=== PATIENT | male | born 1965 | race Caucasian/White ===

== ENCOUNTER 2019-05-08 10:45 | Emergency (ER) | payer OTHER ==
[~2019-05-08] VITALS: Ht 193 cm; Wt 78.5 kg
--- NOTE | 2019-05-08 10:49 | NUR ---
PT [id number], in custody, c/o mild sob. here for medical clearance. pt is aaox4, not in respiratory distress, hooked to monitor, kept rested and comfortable, will continue to monitor.
--- NOTE | 2019-05-08 10:53 | NUR ---
SEEN AND EXAMINED BY .
--- NOTE | 2019-05-08 11:00 | NUR ---
ER PHLEB AT BEDSIDE FOR BLOOD DRAW.
[2019-05-08 11:12] LABS: BASOPHILS # (AUTO) 0.3 /CMM (0.0-0.2); BASOPHILS % (AUTO) 3.7 % (0.0-2.0); EOSINOPHILS % (AUTO) 1.9 % (0.0-6.0); HEMATOCRIT 45 % (39-51); HEMOGLOBIN 14.6 g/dL (13.5-17.5); LYMPHOCYTES # (AUTO) 0.8 /CMM (0.8-4.8); LYMPHOCYTES % (AUTO) 11.1 % (20.0-44.0); MEAN CORPUSCULAR HGB CONC 33 g/dl (31.0-36.0); MEAN CORPUSCULAR VOLUME 91 fL (80-96); MONOCYTES # (AUTO) 0.3 /CMM (0.1-1.30); MONOCYTES % (AUTO) 4.1 % (2.0-12.0); NEUTROPHILS # (AUTO) 5.8 /CMM (1.8-8.9); NEUTROPHILS % (AUTO) 79.2 % (43.0-81.0); PLATELET COUNT (AUTO) 244 /CMM (150-450); RED BLOOD CELL COUNT(AUTO) 4.98 MIL/uL (4.5-6.0); WHITE BLOOD COUNT (AUTO) 7.3 K/uL (4.3-11.0)
[2019-05-08 11:16] LABS: CALCIUM, SERUM 9.1 mg/dL (8.5-10.1); POTASSIUM 4.7 mmol/L (3.5-5.1)
--- NOTE | 2019-05-08 11:18 | NUR ---
SLITTER SCORER AT BEDSIDE FOR XRAY.
[2019-05-08 11:21] LABS: ALBUMIN 3.7 g/dL (3.4-5.0); BILIRUBIN,DIRECT 0.3 mg/dL (0.0-0.2); BILIRUBIN,TOTAL 2.1 mg/dL (0.2-1.0); TOTAL PROTEIN, SERUM 6.8 g/dL (6.4-8.2)
[2019-05-08 11:34] VITALS: BP 118/83
--- NOTE | 2019-05-08 11:54 | NUR ---
Patient discharged in custody in stable condition. Written and verbal after care instructions given. Patient verbalizes understanding of instruction.
== END 2019-05-08 11:55 ==
LOC: ER 10:50
DX: R07.89 Other chest pain (principal); R06.02 Shortness of breath
CPT/HCPCS: 36415; 71045-TC; 80048-TC; 80076-TC; 84484-TC; 85025-TC

== ENCOUNTER 2023-10-24 11:27 | Inpatient (IN) | payer OTHER ==
[~2023-10-24] VITALS: Ht 193 cm; Wt 62.1 kg
[2023-10-24 11:55] LABS: BASOPHILS # (AUTO) 0.2 K/uL (0.0-0.2); BASOPHILS % (AUTO) 3.9 % (0.0-2.0); EOSINOPHILS # (AUTO) 0.1 K/uL (0.0-0.7); EOSINOPHILS % (AUTO) 1.6 % (0.0-6.0); HEMATOCRIT 41 % (39-51); HEMOGLOBIN 13.4 g/dL (13.5-17.5); LYMPHOCYTES # (AUTO) 0.8 K/uL (0.8-4.8); LYMPHOCYTES % (AUTO) 14.4 % (20.0-44.0); MEAN CORPUSCULAR HEMOGLOBIN 29 PG (26.0-33.0); MEAN CORPUSCULAR HGB CONC 33 g/dl (31.0-36.0); MEAN CORPUSCULAR VOLUME 89 fL (80-96); MONOCYTES # (AUTO) 0.3 K/uL (0.1-1.30); NEUTROPHILS # (AUTO) 3.9 K/uL (1.8-8.9); NEUTROPHILS % (AUTO) 74.1 % (43.0-81.0); PLATELET COUNT (AUTO) 193 K/uL (150-450); RED BLOOD CELL COUNT(AUTO) 4.56 MIL/uL (4.5-6.0); RED CELL DISTRIBUTION WIDTH 14.6 % (11.5-15.0); WHITE BLOOD COUNT (AUTO) 5.2 K/uL (4.3-11.0)
[2023-10-24 12:04] LABS: CALCIUM, SERUM 8.3 mg/dL (8.5-10.1); CARBON DIOXIDE 28 mmol/L (21-32); CHLORIDE 103 mmol/L (98-107); CREATININE 1.4 mg/dL (0.6-1.3); GLUCOSE 170 mg/dL (74-106); POTASSIUM 4.2 mmol/L (3.5-5.1); SODIUM SERUM 138 mmol/L (136-145); UREA NITROGEN, BLOOD 27 mg/dL (7-18)
[2023-10-24 12:16] LABS: NT-PRO BNP 5337 pg/mL (0-125)
[2023-10-24] MEDS ORDERED: FURO-145 PO (13:06)
[2023-10-24] MEDS ORDERED: SACU1TAB PO (13:06)
[2023-10-24] MEDS ORDERED: CARV3.12 PO (13:06)
[2023-10-24 17:00] VITALS: BP 93/74; TEMP 98.3
[2023-10-24 20:00] VITALS: BP 104/84; TEMP 97.3; O2SAT 97
[2023-10-24] MEDS ORDERED: MISCELLANEOUS MED 1 EA EA XX ONE ×2 (20:30→21:00)
[2023-10-24] MEDS: FUROSEMIDE 20 MG TABLET PO SCH (21:01)
[2023-10-24] MEDS: CARVEDILOL 3.125 MG TABLET PO SCH ×2 (21:01→22:30)
[2023-10-24] MEDS: SACUBITRIL/VALSARTAN 1 EACH TABLET PO SCH (21:02)
[2023-10-24] MEDS ORDERED: MAGNESIUM HYDROXIDE 30 ML UDC PO PRN (22:30)
[2023-10-24] MEDS ORDERED: MAG HYDROX/AL HYDROX/SIMETH 30 ML UDC PO PRN (22:30)
[2023-10-24] MEDS ORDERED: ONDANSETRON HCL/PF 4 MG/2 ML VIAL IVP PRN (22:30)
[2023-10-24] MEDS ORDERED: Z GUARD REMEDY 4 OZ OINT TP PRN (22:30)
[2023-10-24] MEDS ORDERED: ACETAMINOPHEN 325 MG TABLET PO PRN (22:30)
[2023-10-24] MEDS ORDERED: ZOLPIDEM TARTRATE 5 MG TABLET PO PRN (22:30)
[2023-10-25] VITALS: BP 104/83; TEMP 97.5; O2SAT 97
[2023-10-25] MEDS: LORAZEPAM 0.5 MG TABLET PO PRN (01:33)
[2023-10-25 04:00] VITALS: BP 100/73; TEMP 97.7; O2SAT 95
[2023-10-25 07:00] VITALS: BP 103/88; TEMP 98.2; O2SAT 100
[2023-10-25] MEDS: PANTOPRAZOLE 40 MG TABLET.DR PO SCH (08:02)
[2023-10-25] MEDS: FUROSEMIDE 20 MG TABLET PO SCH (08:04)
[2023-10-25 08:07] VITALS: BP 108/86
[2023-10-25 08:47] LABS: CALCIUM, SERUM 8.2 mg/dL (8.5-10.1)
[2023-10-25 10:20] LABS: BASOPHILS % (AUTO) 0.7 % (0.0-2.0); EOSINOPHILS # (AUTO) 0.2 K/uL (0.0-0.7); EOSINOPHILS % (AUTO) 2.2 % (0.0-6.0); HEMATOCRIT 39 % (39-51); LYMPHOCYTES # (AUTO) 1.3 K/uL (0.8-4.8); LYMPHOCYTES % (AUTO) 18.6 % (20.0-44.0); MEAN CORPUSCULAR HEMOGLOBIN 30 PG (26.0-33.0); MEAN CORPUSCULAR HGB CONC 34 g/dl (31.0-36.0); MEAN CORPUSCULAR VOLUME 89 fL (80-96); MONOCYTES # (AUTO) 0.5 K/uL (0.1-1.30); MONOCYTES % (AUTO) 6.7 % (2.0-12.0); NEUTROPHILS # (AUTO) 4.9 K/uL (1.8-8.9); NEUTROPHILS % (AUTO) 71.8 % (43.0-81.0); PLATELET COUNT (AUTO) 192 K/uL (150-450); RED BLOOD CELL COUNT(AUTO) 4.33 MIL/uL (4.5-6.0); RED CELL DISTRIBUTION WIDTH 14.6 % (11.5-15.0); WHITE BLOOD COUNT (AUTO) 6.8 K/uL (4.3-11.0)
[2023-10-25 10:41] LABS: PHOSPHORUS 3.6 mg/dL (2.5-4.9)
[2023-10-25 10:59] LABS: MAGNESIUM 2.3 mg/dL (1.8-2.4)
[2023-10-25] MEDS ORDERED: FURO-145 PO (11:07)
[2023-10-25] MEDS ORDERED: SPIR25TA6 PO (11:07)
== END 2023-10-25 13:45 | disposition home or self-care (01) | DRG 198 ==
LOC: ER 11:30 → TELE 16:34
PROVIDERS: ADMIT Nurse Practitioner Family; ATTEND Student in an Organized Health Care Education/Training Program
DX: I25.10 Atherosclerotic heart disease of native coronary artery without angina pectoris (principal); N17.0 Acute kidney failure with tubular necrosis; I50.9 Heart failure, unspecified; I11.0 Hypertensive heart disease with heart failure; D64.9 Anemia, unspecified; R79.89 Other specified abnormal findings of blood chemistry; E88.9 Metabolic disorder, unspecified; Z95.810 Presence of automatic (implantable) cardiac defibrillator
CPT/HCPCS: 36415; 71045-TC; 80048-TC; 80061-TC; 83735-TC; 83880; 84100-TC; 84484-TC; 85025-TC; 97110-TC; 97116-TC; 97530-TC; G0378

== ENCOUNTER 2023-11-12 04:14 | Inpatient (IN) | payer OTHER ==
[2023-11-12] VITALS (7 sets, daily range): BP systolic 94–110; BP diastolic 78–81; TEMP 97.5–97.7; O2SAT 97–100
[~2023-11-12] VITALS: Ht 182.9 cm; Wt 78.0 kg
[~2023-11-12 04:14] MED LIST: CARV3.12 PO; FURO-145 PO; SACU1TAB PO; SPIR25TA6 PO
[2023-11-12] MEDS ORDERED: ASPIRIN 81 MG TAB.CHEW ONE (04:50)
[2023-11-12] MEDS ORDERED: NITROGLYCERIN PACKET 1 GM PACKET ONE (04:50)
[2023-11-12 04:56] LABS: BASOPHILS % (AUTO) 0.1 % (0.0-2.0); EOSINOPHILS % (AUTO) 0.1 % (0.0-6.0); HEMATOCRIT 35 % (39-51); HEMOGLOBIN 11.4 g/dL (13.5-17.5); LYMPHOCYTES # (AUTO) 1.2 K/uL (0.8-4.8); MEAN CORPUSCULAR HEMOGLOBIN 30 PG (26.0-33.0); MEAN CORPUSCULAR HGB CONC 33 g/dl (31.0-36.0); MEAN CORPUSCULAR VOLUME 91 fL (80-96); MONOCYTES # (AUTO) 1.3 K/uL (0.1-1.30); MONOCYTES % (AUTO) 12.2 % (2.0-12.0); NEUTROPHILS # (AUTO) 8.2 K/uL (1.8-8.9); NEUTROPHILS % (AUTO) 76.6 % (43.0-81.0); PLATELET COUNT (AUTO) 155 K/uL (150-450); RED BLOOD CELL COUNT(AUTO) 3.84 MIL/uL (4.5-6.0); RED CELL DISTRIBUTION WIDTH 15.3 % (11.5-15.0); WHITE BLOOD COUNT (AUTO) 10.7 K/uL (4.3-11.0)
[2023-11-12] MEDS: ASPIRIN 81 MG TAB.CHEW PO ONE (04:57)
[2023-11-12] MEDS: NITROGLYCERIN PACKET 1 GM PACKET TD ONE (04:58)
[2023-11-12 05:09] LABS: ALANINE AMINOTRANSFERASE 884 U/L (12-78); ALBUMIN 3.6 g/dL (3.4-5.0); ALKALINE PHOSPHATASE 104 U/L (46-116); ASPARTATE AMINOTRANSFERASE 190 U/L (15-37); BILIRUBIN,DIRECT 1.4 mg/dL (0.0-0.2); BILIRUBIN,TOTAL 4.6 mg/dL (0.2-1.0); CALCIUM, SERUM 8.9 mg/dL (8.5-10.1); CARBON DIOXIDE 25 mmol/L (21-32); CHLORIDE 87 mmol/L (98-107); CREATININE 1.5 mg/dL (0.6-1.3); GLUCOSE 117 mg/dL (74-106); POTASSIUM 4.5 mmol/L (3.5-5.1); SODIUM SERUM 122 mmol/L (136-145); TOTAL PROTEIN, SERUM 7.1 g/dL (6.4-8.2); UREA NITROGEN, BLOOD 74 mg/dL (7-18)
[2023-11-12] MEDS: IV NS 0.9% 500 ML BAG IV ONE (05:37)
[2023-11-12 06:10] LABS: APPEARANCE,URINE SLIGHTLY CLOUDY (CLEAR); BILIRUBIN,URINE NEGATIVE (NEGATIVE); BLOOD, URINE 1+ Ery/uL (NEGATIVE); COLOR,URINE YELLOW (YELLOW); KETONES,URINE NEGATIVE (NEGATIVE); LEUKOCYTE ESTERASE ,URINE NEGATIVE (NEGATIVE); NITRITE, URINE NEGATIVE (NEGATIVE); PROTEIN,URINE 2+ mg/dl (NEGATIVE); UGLUCOSE NEGATIVE (NEGATIVE)
[2023-11-12 06:15] LABS: ABG BASE EXCESS -0.6 mmol/L; ABG OXYGEN SATURATION 98.8 % (92.0-98.5); ABG PCO2 22.2 mmHg (35.0-45.0); ABG PH 7.567 (7.350-7.450); ABG PO2 132.7 mmHg (75.0-100.0); ABG TOTAL HEMOGLOBIN 12.6 G/dL (13.5-18.0); COHb 0.5 % (0.5-1.5); MetHb 0.2 % (0.0-1.5); O2Hb 98.1 % (94.0-97.0); SITE, ABG Right Radial
[2023-11-12 06:15] LABS: URINE SODIUM, RANDOM < 5 mmol/l (40-220)
[2023-11-12 06:17] LABS: ADD URINE CULTURE NO; BACTERIA,URINE Rare /HPF (None Seen); SQUAMOUS EPITHELIAL CELL,UR Rare /HPF (None Seen); WBC,URINE 0-2 /HPF (0-3)
[2023-11-12] MEDS ORDERED: IOHEXOL-350 100 ML VIAL IV ONE (07:38)
[2023-11-12] MEDS ORDERED: IV NS 0.9% 250 ML IV ONE (07:39)
[2023-11-12] MEDS ORDERED: CT SWABBABLE VALVE TRANS SET 1 EA INFUS.SET MC ONE (07:39)
[2023-11-12] MEDS ORDERED: ALBUTEROL FS 2.5 MG/0.5 ML VIAL.NEB NEB PRN (08:00)
[2023-11-12] MEDS ORDERED: hydrALAZINE HCL IV 20 MG VIAL IV PRN (08:00)
[2023-11-12] MEDS ORDERED: FUROSEMIDE 20 MG TABLET PO PRN (08:00)
[2023-11-12] MEDS ORDERED: METO25TA4 PO (08:05)
[2023-11-12] MEDS ORDERED: ASPI-1169 PO (08:05)
[2023-11-12] MEDS ORDERED: GABA-532 PO (08:05)
[2023-11-12] MEDS ORDERED: AMIO200T5 PO (08:05)
[2023-11-12] MEDS ORDERED: CARVEDILOL 3.125 MG TABLET PO SCH (09:00)
[2023-11-12] MEDS ORDERED: SPIRONOLACTONE 25 MG TABLET PO SCH (09:00)
[2023-11-12 10:31] LABS: AMPHETAMINE, URINE NEGATIVE (NEGATIVE); BARBITURATE, URINE NEGATIVE (NEGATIVE); BENZODIAZEPINE, URINE NEGATIVE (NEGATIVE); CANNABINOID, URINE NEGATIVE (NEGATIVE); COCCAINE, URINE NEGATIVE (NEGATIVE); PHENCYCLIDINE SCREEN,URINE NEGATIVE (NEGATIVE)
[2023-11-12 10:36] LABS: OPIATE, URINE POSITIVE (NEGATIVE)
[2023-11-12] MEDS: HEPARIN SODIUM, PORCINE 5000 UNITS/1 ML VIAL SQ SCH (10:44)
[2023-11-12] MEDS ORDERED: IPRATROPIUM/ALBUTEROL INHALER IH SCH (12:00)
[2023-11-12] MEDS: ALBUTEROL FS 2.5 MG/3 ML VIAL.NEB NEB SCH (13:18)
[2023-11-12] MEDS: IPRATROPIUM NEB FS 0.5 MG/2.5 ML AMPUL.NEB NEB SCH (13:19)
[2023-11-12] MEDS: CEFEPIME 1 GM in IV D5W 50 ML IV SCH (13:24)
[2023-11-12] MEDS: VANCOMYCIN HCL 1.25 GM in IV D5W 250 ML IV ONE (13:58)
[2023-11-12] MEDS: LORAZEPAM 1 MG TABLET PO PRN (17:55)
[2023-11-13] VITALS (27 sets, daily range): BP systolic 91–119; BP diastolic 71–100; TEMP 96.5–97.8; O2SAT 83–100
[2023-11-13] MEDS: VANCOMYCIN 750 MG in IV D5W 250 ML IV SCH (00:01)
[2023-11-13 05:27] LABS: ABG BASE EXCESS -2.7 mmol/L; ABG OXYGEN SATURATION 98.7 % (92.0-98.5); ABG PCO2 13.9 mmHg (35.0-45.0); ABG PH 7.653 (7.350-7.450); ABG PO2 114.7 mmHg (75.0-100.0); ABG TOTAL HEMOGLOBIN 12.4 G/dL (13.5-18.0); AaDO2 68.5 mmHg; COHb 0.7 % (0.5-1.5); MetHb 0.1 % (0.0-1.5); O2Hb 97.9 % (94.0-97.0); SITE, ABG Right Radial; VENT MODE, BG 2LPM NC
[2023-11-13 06:51] LABS: BASOPHILS % (AUTO) 0.1 % (0.0-2.0); EOSINOPHILS % (AUTO) 0.4 % (0.0-6.0); HEMATOCRIT 36 % (39-51); HEMOGLOBIN 11.6 g/dL (13.5-17.5); LYMPHOCYTES # (AUTO) 1.4 K/uL (0.8-4.8); LYMPHOCYTES % (AUTO) 12.9 % (20.0-44.0); MEAN CORPUSCULAR HEMOGLOBIN 30 PG (26.0-33.0); MEAN CORPUSCULAR HGB CONC 33 g/dl (31.0-36.0); MEAN CORPUSCULAR VOLUME 90 fL (80-96); MONOCYTES # (AUTO) 1.1 K/uL (0.1-1.30); MONOCYTES % (AUTO) 10.5 % (2.0-12.0); NEUTROPHILS # (AUTO) 8.1 K/uL (1.8-8.9); NEUTROPHILS % (AUTO) 76.1 % (43.0-81.0); PLATELET COUNT (AUTO) 159 K/uL (150-450); RED BLOOD CELL COUNT(AUTO) 3.94 MIL/uL (4.5-6.0); RED CELL DISTRIBUTION WIDTH 15.1 % (11.5-15.0); WHITE BLOOD COUNT (AUTO) 10.7 K/uL (4.3-11.0)
[2023-11-13 07:09] LABS: ALBUMIN 3.5 g/dL (3.4-5.0); BILIRUBIN,TOTAL 4.1 mg/dL (0.2-1.0); CALCIUM, SERUM 8.8 mg/dL (8.5-10.1); CREATININE 1.5 mg/dL (0.6-1.3); MAGNESIUM 3.2 mg/dL (1.8-2.4); PHOSPHORUS 3.7 mg/dL (2.5-4.9); POTASSIUM 4.6 mmol/L (3.5-5.1); TOTAL PROTEIN, SERUM 7.1 g/dL (6.4-8.2)
[2023-11-13] MEDS: GABAPENTIN 100 MG CAPSULE PO SCH (09:02)
[2023-11-13] MEDS: METOPROLOL SUCCINATE 25 MG TAB.SR.24H PO SCH (09:02)
[2023-11-13] MEDS: ASPIRIN 81 MG TAB.CHEW PO SCH (09:02)
[2023-11-13] MEDS: AMIODARONE HCL 200 MG TABLET PO SCH (09:03)
[2023-11-13] MEDS: ALBUTEROL HALF STRENGTH 1.25 MG/3 ML VIAL.NEB NEB SCH (14:29)
[2023-11-13] MEDS ORDERED: DoBUTamine 500 MG/250 ML PIGGYBACK IV ONE (20:00)
[2023-11-13] MEDS ORDERED: DOBUTamine 500 MG in IV D5W 210 ML IV PRN (20:30)
[2023-11-13] MEDS: DOBUTamine 500 MG in IV D5W 210 ML IV PRN (20:54)
[2023-11-13] MEDS: DoBUTamine 500 MG/250 ML PIGGYBACK IV ONE (20:56)
[2023-11-13 22:00] LABS: ABG OXYGEN SATURATION 98.6 % (92.0-98.5); ABG PH 7.483 (7.350-7.450); ABG PO2 125.2 mmHg (75.0-100.0); ABG TOTAL HEMOGLOBIN 12.4 G/dL (13.5-18.0); AaDO2 78.4 mmHg; COHb 0.6 % (0.5-1.5); SITE, ABG Right Radial
[2023-11-13 22:45] LABS: OSMOLALITY,URINE 409 mOS/kg (340-1090)
[2023-11-14] VITALS (100 sets, daily range): BP systolic 84–125; BP diastolic 55–99; TEMP 96.7–97.8; O2SAT 79–100
[2023-11-14] MEDS: ACETAMINOPHEN 325 MG TABLET PO PRN (04:21)
[2023-11-14] MEDS: NOREPINEPHRINE 4 MG/4 ML AMPUL IV ONE (05:07)
[2023-11-14 05:10] LABS: HEMATOCRIT 31 % (39-51); HEMOGLOBIN 10.3 g/dL (13.5-17.5); LYMPHOCYTES # (AUTO) 0.8 K/uL (0.8-4.8); LYMPHOCYTES % (AUTO) 10.6 % (20.0-44.0); MEAN CORPUSCULAR HEMOGLOBIN 30 PG (26.0-33.0); MEAN CORPUSCULAR HGB CONC 33 g/dl (31.0-36.0); MEAN CORPUSCULAR VOLUME 89 fL (80-96); MONOCYTES # (AUTO) 0.6 K/uL (0.1-1.30); MONOCYTES % (AUTO) 8.8 % (2.0-12.0); NEUTROPHILS # (AUTO) 5.8 K/uL (1.8-8.9); NEUTROPHILS % (AUTO) 80.6 % (43.0-81.0); PLATELET COUNT (AUTO) 124 K/uL (150-450); RED BLOOD CELL COUNT(AUTO) 3.46 MIL/uL (4.5-6.0); RED CELL DISTRIBUTION WIDTH 14.7 % (11.5-15.0); WHITE BLOOD COUNT (AUTO) 7.2 K/uL (4.3-11.0)
[2023-11-14] MEDS: NOREPINEPHRINE 32 MG in IV NS 0.9% 218 ML IV PRN (05:19)
[2023-11-14 06:45] LABS: ALBUMIN 3.1 g/dL (3.4-5.0); BILIRUBIN,TOTAL 4.2 mg/dL (0.2-1.0); CALCIUM, SERUM 8.6 mg/dL (8.5-10.1); CREATININE 1.8 mg/dL (0.6-1.3); MAGNESIUM 2.8 mg/dL (1.8-2.4); PHOSPHORUS 4.7 mg/dL (2.5-4.9)
[2023-11-14 06:52] LABS: POTASSIUM 4.8 mmol/L (3.5-5.1)
[2023-11-14 07:02] LABS: APPEARANCE,URINE CLEAR (CLEAR); BILIRUBIN,URINE NEGATIVE (NEGATIVE); BLOOD, URINE TRACE-INTA Ery/uL (NEGATIVE); COLOR,URINE YELLOW (YELLOW); KETONES,URINE NEGATIVE (NEGATIVE); LEUKOCYTE ESTERASE ,URINE NEGATIVE (NEGATIVE); NITRITE, URINE NEGATIVE (NEGATIVE); PROTEIN,URINE 1+ mg/dl (NEGATIVE); UGLUCOSE NEGATIVE (NEGATIVE); UROBILINOGEN,URINE 0.2 EU/dL (0.2)
[2023-11-14 07:18] LABS: ADD URINE CULTURE NO; BACTERIA,URINE Rare /HPF (None Seen); SQUAMOUS EPITHELIAL CELL,UR Rare /HPF (None Seen)
[2023-11-14 07:25] LABS: CREATININE, URINE 78.7 MG/DL (30.0-125.0); URINE TOTAL PROTEIN 86.7 mg/dL (0-11.9)
[2023-11-14 07:32] LABS: URINE SODIUM, RANDOM < 5 mmol/l (40-220)
[2023-11-14 07:33] LABS: EOSINOPHIL,URINE None Seen
[2023-11-14] MEDS: SERTRALINE HCL 25 MG TABLET PO SCH (19:13)
[2023-11-14] MEDS: ONDANSETRON HCL/PF 4 MG/2 ML VIAL IVP PRN (23:33)
[2023-11-15] VITALS (74 sets, daily range): BP systolic 92–114; BP diastolic 71–94; TEMP 96.9–98; O2SAT 84–100
[2023-11-15] MEDS: BISACODYL SUPP (10 MG) 10 MG/SUPP.RECT SUPP.RECT RC PRN (03:01)
[2023-11-15 07:25] LABS: CALCIUM, SERUM 8.4 mg/dL (8.5-10.1); CREATININE 1.7 mg/dL (0.6-1.3); MAGNESIUM 2.8 mg/dL (1.8-2.4); PHOSPHORUS 4.4 mg/dL (2.5-4.9); POTASSIUM 4.7 mmol/L (3.5-5.1)
[2023-11-15 07:49] LABS: THYROID STIMULATING HORMONE 3.633 uIU/mL (0.358-3.74); URIC ACID 9.1 mg/dL (2.6-7.2)
[2023-11-15 08:06] LABS: PTH, INTACT 40 pg/mL (15-65)
[2023-11-15] MEDS: VANCOMYCIN HCL 1.25 GM in IV D5W 250 ML IV SCH ×2 (09:00→15:03)
[2023-11-15] MEDS: LACTULOSE 10 G/15 ML UDC (PYXIS) PO PRN (09:04)
[2023-11-15 15:10] LABS: *SPE A/G RATIO 1.3 (0.7-1.7); *SPE ALBUMIN 3.3 g/dL (2.9-4.4); *SPE ALPHA-1-GLOBULIN 0.4 g/dL (0.0-0.4); *SPE ALPHA-2-GLOBULIN 0.4 g/dL (0.4-1.0); *SPE BETA GLOBULIN 0.8 g/dL (0.7-1.3); *SPE GLOBULIN, TOTAL 2.5 g/dL (2.2-3.9); *SPE M-SPIKE Not Observed g/dL (Not Observed); *SPE PROTEIN TOTAL 5.8 g/dL (6.0-8.5); *SPEGAMMA GLOBULIN 0.9 g/dL (0.4-1.8)
[2023-11-16] VITALS (100 sets, daily range): BP systolic 88–113; BP diastolic 65–88; TEMP 97.3–98.4; O2SAT 94–100
[2023-11-16] MEDS: LORAZEPAM 0.5 MG TABLET PO PRN (01:01)
[2023-11-16 04:47] LABS: BASOPHILS % (AUTO) 0.2 % (0.0-2.0); EOSINOPHILS % (AUTO) 0.6 % (0.0-6.0); HEMATOCRIT 34 % (39-51); HEMOGLOBIN 11.2 g/dL (13.5-17.5); LYMPHOCYTES # (AUTO) 0.8 K/uL (0.8-4.8); LYMPHOCYTES % (AUTO) 9.5 % (20.0-44.0); MEAN CORPUSCULAR HEMOGLOBIN 30 PG (26.0-33.0); MEAN CORPUSCULAR HGB CONC 33 g/dl (31.0-36.0); MEAN CORPUSCULAR VOLUME 89 fL (80-96); MONOCYTES # (AUTO) 0.7 K/uL (0.1-1.30); MONOCYTES % (AUTO) 9.1 % (2.0-12.0); NEUTROPHILS # (AUTO) 6.6 K/uL (1.8-8.9); NEUTROPHILS % (AUTO) 80.6 % (43.0-81.0); PLATELET COUNT (AUTO) 155 K/uL (150-450); RED BLOOD CELL COUNT(AUTO) 3.77 MIL/uL (4.5-6.0); RED CELL DISTRIBUTION WIDTH 15.1 % (11.5-15.0); WHITE BLOOD COUNT (AUTO) 8.2 K/uL (4.3-11.0)
[2023-11-16 05:54] LABS: ALBUMIN 3.3 g/dL (3.4-5.0); BILIRUBIN,TOTAL 4.2 mg/dL (0.2-1.0); CALCIUM, SERUM 8.8 mg/dL (8.5-10.1); CREATININE 1.5 mg/dL (0.6-1.3); MAGNESIUM 2.5 mg/dL (1.8-2.4); PHOSPHORUS 3.8 mg/dL (2.5-4.9); POTASSIUM 4.6 mmol/L (3.5-5.1); TOTAL PROTEIN, SERUM 6.6 g/dL (6.4-8.2)
[2023-11-16] MEDS: ZOLPIDEM TARTRATE 5 MG TABLET PO PRN (23:23)
[2023-11-17] VITALS (105 sets, daily range): BP systolic 70–105; BP diastolic 56–82; TEMP 97.2–98.6; O2SAT 9–100
[2023-11-17 05:13] LABS: BASOPHILS % (AUTO) 0.1 % (0.0-2.0); EOSINOPHILS % (AUTO) 0.4 % (0.0-6.0); HEMATOCRIT 32 % (39-51); HEMOGLOBIN 10.5 g/dL (13.5-17.5); LYMPHOCYTES # (AUTO) 0.5 K/uL (0.8-4.8); LYMPHOCYTES % (AUTO) 6.8 % (20.0-44.0); MEAN CORPUSCULAR HEMOGLOBIN 30 PG (26.0-33.0); MEAN CORPUSCULAR HGB CONC 34 g/dl (31.0-36.0); MEAN CORPUSCULAR VOLUME 89 fL (80-96); MONOCYTES # (AUTO) 0.7 K/uL (0.1-1.30); MONOCYTES % (AUTO) 8.9 % (2.0-12.0); NEUTROPHILS # (AUTO) 6.7 K/uL (1.8-8.9); NEUTROPHILS % (AUTO) 83.8 % (43.0-81.0); PLATELET COUNT (AUTO) 147 K/uL (150-450); RED BLOOD CELL COUNT(AUTO) 3.56 MIL/uL (4.5-6.0); RED CELL DISTRIBUTION WIDTH 15.2 % (11.5-15.0); WHITE BLOOD COUNT (AUTO) 7.9 K/uL (4.3-11.0)
[2023-11-17 05:41] LABS: ALBUMIN 3.1 g/dL (3.4-5.0); BILIRUBIN,TOTAL 4.2 mg/dL (0.2-1.0); CALCIUM, SERUM 8.9 mg/dL (8.5-10.1); CREATININE 1.2 mg/dL (0.6-1.3); MAGNESIUM 2.7 mg/dL (1.8-2.4); PHOSPHORUS 2.9 mg/dL (2.5-4.9); POTASSIUM 5.1 mmol/L (3.5-5.1); TOTAL PROTEIN, SERUM 6.2 g/dL (6.4-8.2)
[2023-11-17] MEDS: CEFEPIME 2 GM in IV D5W 100 ML IV SCH (08:44)
[2023-11-17] MEDS: NOREPINEPHRINE 32 MG in IV NS 0.9% 218 ML IV PRN (08:45)
[2023-11-17] MEDS: MAGNESIUM HYDROXIDE 30 ML UDC PO PRN (10:42)
[2023-11-17] MEDS: MORPHINE SULFATE INJ 2 MG/ML DISP.SYRIN IV PRN (14:54)
[2023-11-17] MEDS: ENSURE ENLIVE 237 ML LIQUID (VANILLA) PO SCH (18:44)
[2023-11-18] VITALS (105 sets, daily range): BP systolic 77–114; BP diastolic 50–87; TEMP 97.4–97.9; O2SAT 75–100
[2023-11-18] MEDS: MAG HYDROX/AL HYDROX/SIMETH 30 ML UDC PO PRN (01:34)
[2023-11-18 04:58] LABS: BASOPHILS % (AUTO) 0.1 % (0.0-2.0); HEMATOCRIT 34 % (39-51); HEMOGLOBIN 11.1 g/dL (13.5-17.5); LYMPHOCYTES # (AUTO) 0.5 K/uL (0.8-4.8); LYMPHOCYTES % (AUTO) 3.6 % (20.0-44.0); MEAN CORPUSCULAR HEMOGLOBIN 29 PG (26.0-33.0); MEAN CORPUSCULAR HGB CONC 32 g/dl (31.0-36.0); MEAN CORPUSCULAR VOLUME 89 fL (80-96); MONOCYTES # (AUTO) 1.1 K/uL (0.1-1.30); MONOCYTES % (AUTO) 8.3 % (2.0-12.0); PLATELET COUNT (AUTO) 170 K/uL (150-450); RED BLOOD CELL COUNT(AUTO) 3.85 MIL/uL (4.5-6.0); RED CELL DISTRIBUTION WIDTH 15.4 % (11.5-15.0); WHITE BLOOD COUNT (AUTO) 13.7 K/uL (4.3-11.0)
[2023-11-18 05:23] LABS: ALBUMIN 3.3 g/dL (3.4-5.0); BILIRUBIN,TOTAL 4.5 mg/dL (0.2-1.0); CALCIUM, SERUM 9.1 mg/dL (8.5-10.1); CREATININE 1.9 mg/dL (0.6-1.3); PHOSPHORUS 4.1 mg/dL (2.5-4.9); POTASSIUM 6.1 mmol/L (3.5-5.1); TOTAL PROTEIN, SERUM 6.8 g/dL (6.4-8.2)
[2023-11-18] MEDS: NA PHOS,M-B/NA PHOS,DI-BA 1 EA ENEMA RC ONE (06:30)
[2023-11-18] MEDS: PANTOPRAZOLE 40 MG TABLET.DR PO SCH (08:39)
[2023-11-18] MEDS: SODIUM POLYSTYRENE SULFONATE 15 G/60 ML BOTTLE PO ONE (08:40)
[2023-11-18] MEDS: FUROSEMIDE 40 MG/4 ML VIAL IV ONE (09:14)
[2023-11-18 09:43] LABS: ABG BASE EXCESS -4.7 mmol/L; ABG OXYGEN SATURATION 95.5 % (92.0-98.5); ABG PCO2 26.8 mmHg (35.0-45.0); ABG PH 7.444 (7.350-7.450); ABG PO2 78.4 mmHg (75.0-100.0); ABG TOTAL HEMOGLOBIN 12.4 G/dL (13.5-18.0); AaDO2 39.2 mmHg; COHb 1.2 % (0.5-1.5); O2Hb 94.4 % (94.0-97.0); SITE, ABG Left Radial; VENT MODE, BG ROOM AIR
[2023-11-18 14:50] LABS: CALCIUM, SERUM 8.8 mg/dL (8.5-10.1); CREATININE 2.4 mg/dL (0.6-1.3)
[2023-11-18 14:53] LABS: POTASSIUM 6.8 mmol/L (3.5-5.1)
[2023-11-18] MEDS: SODIUM BICARBONATE SYR 50 MEQ/50 ML DISP.SYRIN IV ONE (15:38)
[2023-11-18] MEDS: DEXTROSE 50%-WATER 50 ML DISP.SYRIN IVP ONE (15:43)
[2023-11-18] MEDS: INSULIN REGULAR, HUMAN 100 UNIT/ML 10 ML VIAL IV ONE (15:48)
[2023-11-18] MEDS ORDERED: PHENYLEPHRINE 50 MG in IV NS 0.9% 245 ML IV PRN (17:30)
[2023-11-18] MEDS: PHENYLEPHRINE 100 MG in IV NS 0.9% 240 ML IV PRN (17:57)
[2023-11-18 18:02] LABS: CREATININE, URINE 89.7 MG/DL (30.0-125.0); URINE SODIUM, RANDOM < 5 mmol/l (40-220); URINE TOTAL PROTEIN 138.3 mg/dL (0-11.9)
[2023-11-18 18:31] LABS: APPEARANCE,URINE CLEAR (CLEAR); BILIRUBIN,URINE NEGATIVE (NEGATIVE); BLOOD, URINE TRACE-INTA Ery/uL (NEGATIVE); COLOR,URINE YELLOW (YELLOW); KETONES,URINE TRACE mg/dL (NEGATIVE); LEUKOCYTE ESTERASE ,URINE NEGATIVE (NEGATIVE); NITRITE, URINE NEGATIVE (NEGATIVE); PROTEIN,URINE 2+ mg/dl (NEGATIVE); UGLUCOSE NEGATIVE (NEGATIVE); UROBILINOGEN,URINE 0.2 EU/dL (0.2)
[2023-11-18 18:36] LABS: ADD URINE CULTURE NO; BACTERIA,URINE None seen /HPF (None Seen); WBC,URINE 0-2 /HPF (0-3)
[2023-11-18 18:37] LABS: FINE GRANULAR CASTS,URINE Few /LPF (None Seen); HYALINE CASTS, URINE Few /LPF (None Seen)
[2023-11-18 18:38] LABS: YEAST,URINE Few /HPF (None Seen)
[2023-11-18 18:46] LABS: EOSINOPHIL,URINE None Seen
[2023-11-18 18:47] LABS: ABG BASE EXCESS -5.2 mmol/L; ABG OXYGEN SATURATION 99.9 % (92.0-98.5); ABG PCO2 26.9 mmHg (35.0-45.0); ABG PH 7.436 (7.350-7.450); ABG PO2 448.2 mmHg (75.0-100.0); ABG TOTAL HEMOGLOBIN 11.9 G/dL (13.5-18.0); COHb 0.4 % (0.5-1.5); MetHb 0.4 % (0.0-1.5); O2Hb 99.1 % (94.0-97.0); SITE, ABG Right Radial
[2023-11-18] MEDS: HEPARIN SODIUM, PORCINE 5000 UNITS/1 ML VIAL IV ONE (22:39)
[2023-11-19] VITALS (101 sets, daily range): BP systolic 68–117; BP diastolic 47–88; TEMP 97.4–98; O2SAT 86–100
[2023-11-19 05:16] LABS: ALBUMIN 3.1 g/dL (3.4-5.0); BILIRUBIN,TOTAL 7.2 mg/dL (0.2-1.0); CALCIUM, SERUM 8.8 mg/dL (8.5-10.1); CREATININE 2.3 mg/dL (0.6-1.3); MAGNESIUM 2.8 mg/dL (1.8-2.4); PHOSPHORUS 4.4 mg/dL (2.5-4.9); POTASSIUM 5.7 mmol/L (3.5-5.1); TOTAL PROTEIN, SERUM 6.2 g/dL (6.4-8.2)
[2023-11-19 07:11] LABS: BASOPHILS % (AUTO) 0.1 % (0.0-2.0); HEMATOCRIT 32 % (39-51); HEMOGLOBIN 10.7 g/dL (13.5-17.5); LYMPHOCYTES # (AUTO) 0.4 K/uL (0.8-4.8); LYMPHOCYTES % (AUTO) 2.4 % (20.0-44.0); MEAN CORPUSCULAR HEMOGLOBIN 29 PG (26.0-33.0); MEAN CORPUSCULAR HGB CONC 33 g/dl (31.0-36.0); MEAN CORPUSCULAR VOLUME 88 fL (80-96); MONOCYTES # (AUTO) 1.1 K/uL (0.1-1.30); MONOCYTES % (AUTO) 6.2 % (2.0-12.0); NEUTROPHILS # (AUTO) 15.6 K/uL (1.8-8.9); NEUTROPHILS % (AUTO) 91.3 % (43.0-81.0); PLATELET COUNT (AUTO) 80 K/uL (150-450); RED BLOOD CELL COUNT(AUTO) 3.65 MIL/uL (4.5-6.0); RED CELL DISTRIBUTION WIDTH 15.4 % (11.5-15.0); WHITE BLOOD COUNT (AUTO) 17.1 K/uL (4.3-11.0)
[2023-11-19] MEDS ORDERED: MILRINONE LACTATE 20 MG in IV D5W 100 ML IV PRN (10:00)
[2023-11-19] MEDS: MILRINONE LACTATE 20 MG in IV D5W 100 ML IV PRN (10:44)
[2023-11-19] MEDS: HEPARIN SODIUM, PORCINE 5000 UNITS/1 ML VIAL IVF PRN (11:24)
[2023-11-19] MEDS ORDERED: NEPRO VAN 237 ML CAN PO PRN (11:30)
[2023-11-19 11:54] LABS: ANISOCYTOSIS 1+; BASOPHILS % (MANUAL) 0 % (0.0-2.0); EOSINOPHILS % (MANUAL) 0 % (0-4); HYPOCHROMASIA 1+; LYMPHOCYTES % (MANUAL) 2 % (16-48); MONOCYTES % (MANUAL) 3 % (0-11.0); NEUTROPHILS % (MANUAL) 95 (42-76); OVALOCYTES 1+; PLATELET ESTIMATE DECREASED; TEAR DROP CELLS 1+
[2023-11-20] VITALS (98 sets, daily range): BP systolic 80–115; BP diastolic 49–75; TEMP 96.5–97.9; O2SAT 89–100
[2023-11-20 02:09] LABS: HEPATITIS B SURFACE AB Non Reactive (.)
[2023-11-20 04:56] LABS: BASOPHILS % (AUTO) 0.1 % (0.0-2.0); HEMATOCRIT 28 % (39-51); HEMOGLOBIN 9.1 g/dL (13.5-17.5); LYMPHOCYTES # (AUTO) 0.7 K/uL (0.8-4.8); LYMPHOCYTES % (AUTO) 4.8 % (20.0-44.0); MEAN CORPUSCULAR HEMOGLOBIN 29 PG (26.0-33.0); MEAN CORPUSCULAR HGB CONC 33 g/dl (31.0-36.0); MEAN CORPUSCULAR VOLUME 88 fL (80-96); MONOCYTES # (AUTO) 1.2 K/uL (0.1-1.30); MONOCYTES % (AUTO) 8.8 % (2.0-12.0); NEUTROPHILS # (AUTO) 11.8 K/uL (1.8-8.9); NEUTROPHILS % (AUTO) 86.3 % (43.0-81.0); PLATELET COUNT (AUTO) 56 K/uL (150-450); RED BLOOD CELL COUNT(AUTO) 3.18 MIL/uL (4.5-6.0); RED CELL DISTRIBUTION WIDTH 15.8 % (11.5-15.0); WHITE BLOOD COUNT (AUTO) 13.6 K/uL (4.3-11.0)
[2023-11-20 05:21] LABS: ALBUMIN 2.4 g/dL (3.4-5.0); BILIRUBIN,TOTAL 5.5 mg/dL (0.2-1.0); CALCIUM, SERUM 7.9 mg/dL (8.5-10.1); CREATININE 2.6 mg/dL (0.6-1.3); MAGNESIUM 2.4 mg/dL (1.8-2.4); PHOSPHORUS 3.2 mg/dL (2.5-4.9); POTASSIUM 4.4 mmol/L (3.5-5.1); TOTAL PROTEIN, SERUM 5.2 g/dL (6.4-8.2)
[2023-11-20] MEDS ORDERED: HEPARIN-LOCK FLUSH PORCINE PF 100 UNITS/1 ML (10 ML)DISP.SYRIN IVF PRN (10:00)
[2023-11-21] VITALS (103 sets, daily range): BP systolic 77–112; BP diastolic 51–76; TEMP 97.4–98.5; O2SAT 95–100
[2023-11-21 04:53] LABS: BASOPHILS % (AUTO) 0.2 % (0.0-2.0); EOSINOPHILS % (AUTO) 0.1 % (0.0-6.0); HEMATOCRIT 26 % (39-51); HEMOGLOBIN 8.5 g/dL (13.5-17.5); LYMPHOCYTES # (AUTO) 0.5 K/uL (0.8-4.8); LYMPHOCYTES % (AUTO) 4.1 % (20.0-44.0); MEAN CORPUSCULAR HEMOGLOBIN 29 PG (26.0-33.0); MEAN CORPUSCULAR HGB CONC 33 g/dl (31.0-36.0); MEAN CORPUSCULAR VOLUME 88 fL (80-96); MONOCYTES % (AUTO) 8.4 % (2.0-12.0); NEUTROPHILS % (AUTO) 87.2 % (43.0-81.0); RED BLOOD CELL COUNT(AUTO) 2.93 MIL/uL (4.5-6.0); RED CELL DISTRIBUTION WIDTH 15.7 % (11.5-15.0); WHITE BLOOD COUNT (AUTO) 11.5 K/uL (4.3-11.0)
[2023-11-21 05:05] LABS: CALCIUM, SERUM 7.9 mg/dL (8.5-10.1); CREATININE 3.3 mg/dL (0.6-1.3); MAGNESIUM 2.5 mg/dL (1.8-2.4); POTASSIUM 4.1 mmol/L (3.5-5.1)
[2023-11-21 05:27] LABS: PLATELET COUNT (AUTO) 47 K/uL (150-450)
[2023-11-21 05:58] LABS: BAND % (MANUAL) 2 % (0.0-5.0)
[2023-11-21 05:59] LABS: LYMPHOCYTES % (MANUAL) 8 % (16-48); MONOCYTES % (MANUAL) 2 % (0-11.0); NEUTROPHILS % (MANUAL) 88 (42-76)
[2023-11-21 06:00] LABS: PLATELET ESTIMATE DECREASED
[2023-11-21] MEDS: ALTEPLASE CATHFLO 2 MG/VIAL XX ONE (20:43)
[2023-11-22] VITALS (98 sets, daily range): BP systolic 74–116; BP diastolic 38–75; TEMP 97.5–98.5; O2SAT 90–99
[2023-11-22 04:22] LABS: BASOPHILS % (AUTO) 0.1 % (0.0-2.0); EOSINOPHILS % (AUTO) 0.2 % (0.0-6.0); HEMATOCRIT 26 % (39-51); HEMOGLOBIN 8.7 g/dL (13.5-17.5); LYMPHOCYTES # (AUTO) 0.6 K/uL (0.8-4.8); MEAN CORPUSCULAR HEMOGLOBIN 29 PG (26.0-33.0); MEAN CORPUSCULAR HGB CONC 34 g/dl (31.0-36.0); MEAN CORPUSCULAR VOLUME 87 fL (80-96); MONOCYTES # (AUTO) 0.9 K/uL (0.1-1.30); NEUTROPHILS # (AUTO) 9.9 K/uL (1.8-8.9); NEUTROPHILS % (AUTO) 86.4 % (43.0-81.0); PLATELET COUNT (AUTO) 57 K/uL (150-450); RED BLOOD CELL COUNT(AUTO) 2.98 MIL/uL (4.5-6.0); RED CELL DISTRIBUTION WIDTH 15.6 % (11.5-15.0); WHITE BLOOD COUNT (AUTO) 11.5 K/uL (4.3-11.0)
[2023-11-22 04:42] LABS: LYMPHOCYTES % (AUTO) 7.9 % (20.0-44.0); MONOCYTES % (AUTO) 5.4 % (2.0-12.0)
[2023-11-22 04:43] LABS: CREATININE 4.1 mg/dL (0.6-1.3); MAGNESIUM 2.7 mg/dL (1.8-2.4); PHOSPHORUS 4.4 mg/dL (2.5-4.9); POTASSIUM 4.5 mmol/L (3.5-5.1)
[2023-11-22] MEDS: LORAZEPAM INJ 2 MG/ML VIAL IV ONE (12:05)
[2023-11-23] VITALS (97 sets, daily range): BP systolic 75–101; BP diastolic 31–75; TEMP 97.4–98.5; O2SAT 93–98
[2023-11-23 04:51] LABS: CALCIUM, SERUM 8.6 mg/dL (8.5-10.1); CREATININE 5.2 mg/dL (0.6-1.3); POTASSIUM 5.1 mmol/L (3.5-5.1)
[2023-11-23] MEDS ORDERED: HYDROMORPHONE 1 MG/1 ML DISP.SYRIN IV PRN (13:00)
[2023-11-23] MEDS: LORAZEPAM INJ 2 MG/ML VIAL IV PRN (15:41)
[2023-11-23] MEDS ORDERED: CEFEPIME 1 GM in IV D5W 50 ML IV SCH (21:00)
[2023-11-24] VITALS (23 sets, daily range): BP systolic 88–97; BP diastolic 56–65; TEMP 97.6–97.8; O2SAT 94–97
== END 2023-11-24 12:15 | DRG 133 ==
LOC: ER 04:16 → TELE1 08:13 → TELE-TD 11-13 17:54 → ICU 11-13 20:29
PROVIDERS: ADMIT Internal Medicine; ATTEND Nurse Practitioner Acute Care
PROC: 05HC33Z Insertion of Infusion Device into Left Basilic Vein, Percutaneous Approach (ICD-10-PCS; principal; 2023-11-15)
PROC: B54NZZA Ultrasonography of Left Upper Extremity Veins, Guidance (ICD-10-PCS; 2023-11-15)
PROC: 5A1D70Z Performance of Urinary Filtration, Intermittent, Less than 6 Hours Per Day (ICD-10-PCS; 2023-11-18)
PROC: 06HY33Z Insertion of Infusion Device into Lower Vein, Percutaneous Approach (ICD-10-PCS; 2023-11-18)
PROC: 05HB33Z Insertion of Infusion Device into Right Basilic Vein, Percutaneous Approach (ICD-10-PCS; 2023-11-21)
PROC: B54MZZA Ultrasonography of Right Upper Extremity Veins, Guidance (ICD-10-PCS; 2023-11-21)
DX: J96.01 Acute respiratory failure with hypoxia (principal); N17.0 Acute kidney failure with tubular necrosis; R57.0 Cardiogenic shock; D69.6 Thrombocytopenia, unspecified; I13.0 Hypertensive heart and chronic kidney disease with heart failure and stage 1 through stage 4 chronic kidney disease, or unspecified chronic kidney disease; E46 Unspecified protein-calorie malnutrition; J18.9 Pneumonia, unspecified organism; E87.1 Hypo-osmolality and hyponatremia; I50.22 Chronic systolic (congestive) heart failure; Z51.5 Encounter for palliative care; I21.A1 Myocardial infarction type 2; I42.9 Cardiomyopathy, unspecified; N18.9 Chronic kidney disease, unspecified; D64.9 Anemia, unspecified; E87.5 Hyperkalemia; F17.200 Nicotine dependence, unspecified, uncomplicated; F41.9 Anxiety disorder, unspecified; I48.91 Unspecified atrial fibrillation; N28.1 Cyst of kidney, acquired; Z66 Do not resuscitate; Z91.158 Patient's noncompliance with renal dialysis for other reason; Z95.810 Presence of automatic (implantable) cardiac defibrillator; E80.6 Other disorders of bilirubin metabolism; M89.8X9 Other specified disorders of bone, unspecified site; R18.8 Other ascites; R74.01 Elevation of levels of liver transaminase levels; J44.0 Chronic obstructive pulmonary disease with (acute) lower respiratory infection; I50.84 End stage heart failure; F19.10 Other psychoactive substance abuse, uncomplicated; F32.A Depression, unspecified; F10.90 Alcohol use, unspecified, uncomplicated; E86.0 Dehydration; J98.4 Other disorders of lung; Z68.23 Body mass index [BMI] 23.0-23.9, adult
CPT/HCPCS: 36410; 36415; 36600; 71045-TC; 76700-TC; 80048-TC; 80053-TC; 80076-TC; 80202-TC; 81001; 82140-TC; 82550-TC; 82570-TC; 82803-TC; 82962-TC; 83735-TC; 83880; 83935-TC; 83970; 84100-TC; 84155; 84165; 84300-TC; 84443-TC; 84484-TC; 84550-TC; 85025-TC; 85378-TC; 86022; 86706; 87081-TC; 87340; 90935-TC; 92526; 92611-TC; 93307-TC; 94760-TC; 94761-TC; 94762-TC; 94799-TC; A4223; G0378; J0692; J1250; J1642; J1644; J1815; J1940; J2060; J2260; J2270; J2405; J2997; J3371; J3490; J7030; J7050; J7060; Q9967